=== PATIENT | female | born 1980 | race Caucasian/White ===

== ENCOUNTER 2017-11-19 07:22 | Emergency (ER) | payer OTHER ==
[~2017-11-19] VITALS: Ht 162.6 cm; Wt 80.0 kg
[2017-11-19 07:36] VITALS: BP 159/90; PULSE 86; RESP 16; TEMP 98.7; O2SAT 97
[2017-11-19] MEDS ORDERED: ALBU0.08 NEB (07:47)
[2017-11-19] MEDS ORDERED: FLUT1INH INH (08:20)
[2017-11-19] MEDS ORDERED: ALBUAER3 INH (08:20)
--- NOTE | 2017-11-19 08:20 | PD ---
HPI Chief Complaint: throat pain Time Seen by Provider: 07:59 Travel History International Travel<30 days: No Contact w/Intl Traveler<30days: No Traveled to known affect area: No History of Present Illness HPI This 36-year-old female says she's had a full feeling in her throat for several months. She has had some weight gain thought it might be that. She says that her Timur's apple has seemed sore for last couple of weeks. She does smoke cigarettes. She has a history of asthma but has been out of her medications which include Advair and albuterol. She was worse last week but that is improved. She is not aware of fever or chills. She had a baby a year ago [facility] Past Medical History Asthma: Yes Respiratory: Yes (ASTHMA) Influenza Vaccination: Yes ?: Not LMP: 10/25/2017 Past Surgical History Section: Yes Social History Alcohol Use: Yes (COUPLE TIMES PER WEEK) Tobacco Use: Yes (/ PPD) Substance Use: No Allergies-Medications (Allergen,Severity, Reaction): Coded Allergies: No Known Allergies (Unverified , 11/19/17) Reported Meds & Prescriptions Reported Meds & Active Scripts Active Reported Albuterol Neb (Albuterol Sulfate) 2.5 Mg/3 Ml Neb 2.5 Mg NEB Q4HR NEB While awake Review of Systems General / Constitutional: No: Fever, Chills Eyes: No: Diploplia, Blurred Vision HENT: Positive: Sore Throat, Neck Pain, No: Headaches Cardiovascular: No: Chest Pain or Discomfort, Palpitations Respiratory: No: Cough Gastrointestinal: No: Nausea, Vomiting Musculoskeletal: No: Myalgias Skin: No Rash Hematologic/Lymphatic: No: Easy Bruising Physical Exam Narrative GENERAL: He developed female SKIN: Focused skin assessment warm/dry. HEAD: Atraumatic. Normocephalic. EYES: Pupils equal and round. No scleral icterus. No injection or drainage. ENT: No nasal bleeding or discharge. Mucous membranes pink and moist. NECK: Trachea midline. No JVD. There is no lymphadenopathy. There is no swelling noted of the [place]'s apple RESPIRATORY: No accessory muscle use. Clear to auscultation. Breath sounds equal bilaterally. MUSCULOSKELETAL: No obvious deformities. No clubbing. No cyanosis. No edema. NEUROLOGICAL: Awake and alert. No obvious cranial nerve deficits. Motor grossly within normal limits. Normal speech. PSYCHIATRIC: Appropriate mood and affect; insight and judgment normal. Data Data Last Documented VS Vital Signs Date Time Temp Pulse Resp B/P (MAP) Pulse Ox O2 Delivery O2 Flow Rate FiO2 11/19/17 07:36 98.7 86 16 159/90 (113) 97 MDM Medical Decision Making Medical Screen Exam Complete: Yes Emergency Medical Condition: Yes Medical Record Reviewed: Yes Differential Diagnosis Differential includes throat irritation secondary to smoking, viral pharyngitis , head and neck cancer Narrative Course Examination is quite benign and I don't think any imaging is warranted. I have advised that the symptoms worsen she should return. I have encouraged her to stop smoking. I will renew her asthma medications Diagnosis Primary Impression: Pharyngitis Qualified Codes: J02.9 - Acute pharyngitis, unspecified Scripts Albuterol 8.5 GM Inh (Proair Hfa 8.5 GM Inh) 90 Mcg/Act Aer 2 PUFF INH Q4-6H Y for SHORTNESS OF BREATH, #1 INHALER 0 Refills 108 mcg/actuation Prov: Bret Owen MD 11/19/17 Fluticasone-Vilanterol Inh (Breo Ellipta Inh) 100-25 Mcg/Act Inh 1 PUFF INH DAILY, #1 INHALER 0 Refills Use daily at the same time. Prov: Bret Owen MD 11/19/17 Disposition: 01 DISCHARGE HOME Condition: Stable Bret Owen MD Nov 19, 2017 08:20
== END 2017-11-19 08:30 | disposition home or self-care (01) ==
LOC: PHED 07:22
DX: J02.9 Acute pharyngitis, unspecified (principal); J45.909 Unspecified asthma, uncomplicated; F17.210 Nicotine dependence, cigarettes, uncomplicated; Z79.899 Other long term (current) drug therapy
CPT/HCPCS: 99283